=== PATIENT | female | born 2000 | race Caucasian/White ===

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

== ENCOUNTER 2020-01-13 10:43 | Observation (INO) ==
[2020-01-13] MEDS ORDERED: SODIUM CHLORIDE 1,000 ML IV STA ×2 (11:09→14:12)
[2020-01-13] MEDS ORDERED: PEPCID IVP ONE (11:09)
[2020-01-13] MEDS ORDERED: PHENERGAN 25 MG/ML VIAL 25 MG in SODIUM CHLORIDE 50 ML IV STA (11:11)
[2020-01-13] MEDS ORDERED: PHENERGAN 25 MG/ML VIAL ONE (11:17)
[2020-01-13 11:21] LABS: HEMATOCRIT 37.2 % (37.0-47.0)
[2020-01-13] MEDS ORDERED: PEPCID ONE (11:22)
--- NOTE | 2020-01-13 11:33 | ED.PDOC ---
General ED Provider: Dr. CARLOS ALBERTO KIDD Stated Complaint: Stated started her menses this morning and then developed intense cramping associates with Nausea and vomiting-multiple times and now dry heaves. States normallly smokes Cannabis daily Time Seen by Physician: 11:10 Mode of Arrival: Stretcher Information Source: Patient and EMT Exam Limitations: No limitations Primary Care Provider: HANS LARSON MD Seen Within Last 72 Hours for Same Complaint By: ED Nursing and Triage Documentation Reviewed and Agree: Yes Does patient meet sepsis criteria?: No System Inflammatory Response Syndrome: Not Applicable Sepsis Protocol: For patient's 13 years and over: Temp is 96.8 and below OR 101 and greater Pulse >90 BPM Resp >20/minute Acutely Altered Mental Status Are patient's symptoms suggestive of a new infection, such as: -Pneumonia -Skin, Soft Tissue -Endocarditis -UTI -Bone, Joint Infection -Implantable Device -Acute Abdominal Infection -Wound Infection -Meningitis -Blood Stream Catheter Infection -Unknown GI Complaint Exam Abdominal Pain Complaint/Exam Onset: Sudden Duration: 4 hrs onset with menses Symptoms Are: Still present Timing: Constant Initial Severity: Moderate Current Severity: Moderate Location of Pain: Discrete and Epigastric Character: Reports Sharp, Aching and Cramping Aggravating: Reports Position Alleviating: Reports None Associated Signs and Symptoms: Reports Diaphoresis, Chest pain and Back pain Related History: Reports Similar episode Ectopic Risk Factors: Reports None Ovarian Torsion Risk Factors: Reports None Surgical Obstruction Risk Factors: Reports None Related Surgical History: Reports None Patient Rh Status: Positive Abdominal Findings: Present None and Other (mid epigastric) Review of Systems Review Of Systems Constitutional: Reports Weakness and Loss of appetite Ears, Nose, Mouth, Throat: Reports Throat pain; Denies Ear pain, Ear discharge and Nose discharge Respiratory: Reports No symptoms Cardiac: Reports No symptoms GI: Reports Abdominal pain, Nausea, Poor fluid intake and Vomiting : Reports No symptoms Musculoskeletal: Reports No symptoms Skin: Reports No symptoms Neurological: Reports No symptoms Endocrine: Reports No symptoms Hematologic/Lymphatic: Reports No symptoms All Other Systems: Reviewed and Negative [facility] Medical History Chronic headaches Social History Smoking and tobacco status: Current every day smoker Tobacco: How many years used: 3 Passive smoking exposure: No Quit status: quit date established Second hand smoke exposure: No Smoking risk assessment performed: No Alcohol intake: current Alcohol intake frequency: holidays/special occasions only Counseling given: No Counseling provided: none Substance use type: marijuana Counseling given: No Counseling provided: none Diandra/zoroastrianism: NONE Special diandra needs: No Agree to transfusion: Yes Adopted: No Caregiver/support person: No Foster care: No Household members: family Housing: house Marital status: S SINGLE Lives independently: No Daycare: no daycare Number of children: 0 Number of grandchildren: 0 Highest education level completed: high school graduate Financial difficulty paying for basics: somewhat hard service: No alf: No Current occupational status: employed Current occupational exposures/hazards: No Pets and animals: Yes (cat) Leisure activites: music History of recent travel: Yes ([place]) Sexually active: No Do you think of yourself as: straight/heterosexual Current gender identity: female Seatbelt use: always Helmet use: No Drives intoxicated or rides with intoxicated motor coach bus driver: No Water heater temperature set < 120 degrees: Yes Working smoke detector in home: Yes Fire extinguisher in home: Yes Carbon monoxide detector in home: Yes Firearms in home: No What type of physical activity do you participate in?: running Physical activity functional status: independent ambulation How many days of moderate to strenuous exercise, like a brisk walk, did you do in the last 7 days: 3 Female Reproductive History Menstrual Hx Hysterectomy: No Hx Tubal Ligation: No Physical Exam Physical Exam Appearance: Reports Ill-appearing and Thin Ill-appearing: Moderate Pain Distress: Moderate Eyes: Reports PHIL, EOMI and Conjunctiva clear ENT: Reports Ears normal, Nose normal and Erythema (oralpharynx/sore throat) Neck: Supple Respiratory: Reports Airway patent and Breath sounds clear Cardiovascular: Reports RRR, Pulses normal, No rub and Irregular rhythm GI/: Reports Soft and Tender (mid epigastric) Musculoskeletal: Reports Normal strength, ROM intact, No edema and No calf tenderness Skin: Reports Warm, Dry, Normal color and Other (No rash ) Neurological: Reports Sensation intact, Motor intact, Reflexes intact, Cranial nerves intact, Alert and Oriented Psychiatric: Reports Affect appropriate and Anxious Critical Care Note Critical Care Note Total Time (mins): 30 Course Course Hematology/Chemistry: 01/14/20 05:10 01/14/20 05:10 Orders, Labs, Meds: Lab Review 01/13/20 01/13/20 01/13/20 11:17 11:17 11:17 WBC 13.45 H RBC 4.28 Hgb 12.7 Hct 37.2 MCV 86.9 MCH 29.7 MCHC 34.1 RDW Coeff of Lexie 12.4 Plt Count 248 Immature Gran % (Auto) 0.3 Neut % (Auto) 88.8 H Lymph % (Auto) 7.6 L [place] % (Auto) 2.8 Eos % (Auto) 0.1 Baso % (Auto) 0.4 Neut # (Auto) 12.0 H Lymph # (Auto) 1.0 [place] # (Auto) 0.4 Eos # (Auto) 0.0 Baso # (Auto) 0.1 Immature Gran # (Auto) 0.0 Sodium 139.9 Potassium 3.57 Chloride 108.5 H Carbon Dioxide 21.3 L Anion Gap 13.67 BUN 9.8 Creatinine 0.50 L Estimated GFR (MDRD) 159.00 BUN/Creatinine Ratio 19.60 Glucose 99.2 Calcium 8.66 Magnesium 1.86 Total Bilirubin 0.49 L AST 30.1 H ALT 14.8 Alkaline Phosphatase 79.1 Total Protein 7.27 Albumin 4.34 Globulin 2.93 Albumin/Globulin Ratio 1.48 Lipase Serum , Qual Negative Urine Color Urine Clarity Urine pH Ur Specific [place] Urine Protein Urine Glucose (UA) Urine Ketones Urine Blood Urine Nitrite Urine Bilirubin Urine Urobilinogen Ur Leukocyte Esterase Urine Microscopic RBC Urine Microscopic WBC Ur Squamous Epith Cells Urine Opiates Screen Ur Oxycodone Screen Urine Methadone Screen Ur Propoxyphene Screen Ur Barbiturates Screen U Tricyclic Antidepress Ur Phencyclidine Scrn Ur Amphetamine Screen U Methamphetamines Scrn U Benzodiazepines Scrn Urine Cocaine Screen U Cannabinoids Screen 01/13/20 01/13/20 01/13/20 11:17 14:09 14:09 WBC RBC Hgb Hct MCV MCH MCHC RDW Coeff of Lexie Plt Count Immature Gran % (Auto) Neut % (Auto) Lymph % (Auto) [place] % (Auto) Eos % (Auto) Baso % (Auto) Neut # (Auto) Lymph # (Auto) [place] # (Auto) Eos # (Auto) Baso # (Auto) Immature Gran # (Auto) Sodium Potassium Chloride Carbon Dioxide Anion Gap BUN Creatinine Estimated GFR (MDRD) BUN/Creatinine Ratio Glucose Calcium Magnesium Total Bilirubin AST ALT Alkaline Phosphatase Total Protein Albumin Globulin Albumin/Globulin Ratio Lipase 57.9 Serum , Qual Urine Color Yellow Urine Clarity Cloudy Urine pH 7.5 Ur Specific [place] 1.020 Urine Protein Negative Urine Glucose (UA) Negative Urine Ketones 1+ H Urine Blood 3+ H Urine Nitrite Negative Urine Bilirubin Negative Urine Urobilinogen 0.2 Ur Leukocyte Esterase Trace H Urine Microscopic RBC 30-50 Urine Microscopic WBC 0-2 Ur Squamous Epith Cells 2-5 Urine Opiates Screen Negative Ur Oxycodone Screen Negative Urine Methadone Screen Negative Ur Propoxyphene Screen Negative Ur Barbiturates Screen Negative U Tricyclic Antidepress Negative Ur Phencyclidine Scrn Negative Ur Amphetamine Screen Negative U Methamphetamines Scrn Negative U Benzodiazepines Scrn Negative Urine Cocaine Screen Positive H U Cannabinoids Screen Positive H Orders Category Date Time Status CBC W/ AUTO DIFF Stat LAB 01/13/20 11:17 Completed CMP [COMPREHENSIVE METABOLIC PANEL] Stat LAB 01/13/20 11:17 Completed HCG QUALITATIVE [SERUM ] Stat LAB 01/13/20 11:17 Completed MAGNESIUM Stat LAB 01/13/20 11:17 Completed RAPID STREP SCREEN [MOLECULAR GROUP A STREP] Stat LAB 01/13/20 11:35 Completed UA [URINALYSIS C & S IF INDICATED] Stat LAB 01/13/20 14:09 Completed URINE DRUG SCREEN (RAPID FOR ED) [DRUG SCREEN, URINE, LAB 01/13/20 14:09 Completed RAPID] Stat Famotidine Inj [Pepcid] MEDS 01/13/20 11:22 Discontinued 20 mg .ROUTE .STK-MED ONE Famotidine Inj [Pepcid] MEDS 01/13/20 11:09 Discontinued 20 mg IVP ONCE ONE Hydroxyzine HCl [Vistaril Inj] MEDS 01/13/20 14:08 Discontinued 25 mg IM ONCE STA Ondansetron HCl/Pf [Zofran 4 mg/2 ml] MEDS 01/13/20 13:14 Discontinued 4 mg IVP ONCE STA Promethazine HCl [Phenergan 25 mg/ml Vial] MEDS 01/13/20 11:17 Discontinued 25 mg .ROUTE .STK-MED ONE Promethazine HCl [Phenergan 25 mg/ml Vial] 25 mg MEDS 01/13/20 11:11 Discontinued 0.9 % Sodium Chloride [Sodium Chloride] 50 ml IV ONCE Sodium Chloride 0.9% [Sodium Chloride] 1,000 ml MEDS 01/13/20 11:09 Discontinued IV BOLUS Sodium Chloride 0.9% [Sodium Chloride] 1,000 ml MEDS 01/13/20 14:12 Discontinued IV BOLUS Medications Discontinued Medications Generic Name Dose Route Start Last Admin Trade Name Freq PRN Reason Stop Dose Admin Azithromycin 500 mg 01/14/20 09:00 01/14/20 08:19 Zithromax PO 01/17/20 08:59 500 mg DAILY LEXIE Administration Famotidine 20 mg 01/13/20 11:09 01/13/20 11:27 Pepcid IVP 01/13/20 11:10 20 mg ONCE ONE Administration Hydroxyzine HCl 25 mg 01/13/20 14:08 01/13/20 14:17 Vistaril Inj IM 01/13/20 14:09 25 mg ONCE STA Administration Sodium Chloride 1,000 mls @ 1,000 mls/hr 01/13/20 11:09 01/13/20 11:14 Sodium Chloride IV 01/13/20 12:08 1,000 mls/hr BOLUS STA Administration Promethazine HCl 25 mg/ Sodium 51 mls @ 75 mls/hr 01/13/20 11:11 01/13/20 11:27 Chloride IV 01/13/20 11:51 75 mls/hr ONCE STA Administration Sodium Chloride 1,000 mls @ 500 mls/hr 01/13/20 14:12 01/13/20 14:18 Sodium Chloride IV 01/13/20 16:11 500 mls/hr BOLUS STA Administration Sodium Chloride 1,000 mls @ 90 mls/hr 01/13/20 17:00 01/14/20 05:14 Sodium Chloride IV 90 mls/hr .[id number] LEXIE Administration Ketorolac Tromethamine 30 mg 01/13/20 16:37 01/13/20 17:26 Toradol IVP 30 mg Q12H PRN Administration Abdominal Pain Ondansetron HCl 4 mg 01/13/20 13:14 01/13/20 13:27 Zofran 4 Mg/2 Ml IVP 01/13/20 13:15 4 mg ONCE STA Administration Ondansetron HCl 8 mg 01/13/20 17:00 06/10/20 12:52 Zofran 4 Mg/2 Ml IVP Not Given Q6H LEXIE Promethazine HCl 25 mg 01/13/20 16:31 01/14/20 09:28 Phenergan 25 Mg/Ml Vial IM 25 mg Q6H PRN Administration nausea/vomiting Sucralfate 1 gm 01/13/20 17:00 01/14/20 12:14 Carafate PO 1 gm ACHS LEXIE Administration Sumatriptan Succinate 6 mg 01/13/20 16:31 01/13/20 17:11 Imitrex SUBCUT 01/13/20 16:32 6 mg ONCE STA Administration Vital Signs: Temp Pulse Resp BP Pulse Ox 01/13/20 10:44 97.2 F L 58 L 20 110/61 100 Discharge Plan Discharge Patient Disposition: HOME SELF-CARE Discharge Problem: Acute gastritis, Strep pharyngitis, Cannabinoid hyperemesis syndrome ED Provider: CARLOS ALBERTO KIDD Condition: Stable Discharge Date/Time: 01/13/20 16:31
[2020-01-13] MEDS ORDERED: ZOFRAN 4 MG/2 ML IVP STA (13:14)
[2020-01-13] MEDS ORDERED: VISTARIL INJ IM STA (14:08)
--- NOTE | 2020-01-13 16:13 | PCM ---
Chief Complaint Chief Complaint: Intractable nausea and vomiting. History of Present Illness History of Present Illness: 19 yr old CF presented to ED 01/13/20 at 11:10 via stretcher. EMS was contacted. complaint started menses this am, developed cramping/nausea and vomiting. Has had multiple rounds of emesis today, non bloody, now dry heaving, unable to tolerate po liquids/solids. She reports Cannabis use daily. Sudden onset ~4 hours, symptoms still present in the ED. moderate severity, discrete pain epigastric region still prsent in ED. Rates pain at 5/10, colicky worsening with baseline pain. Sharp, aching/cramping. Positional aggravation, diaphoresis, upper epigastric and back pain. ROS reviewed abd pain, nausea, poor fluid intake and vomiting. Every day smoker 3 years tobacco. Holidays/special events for ETOH, no increased use lately. no i ncreased use of ibuprofen/aleve or other NSAIDS. Daily THC. Also using cocaine intermittently last use within last few days. WBC 13.45, hgb 12.7, plt 248. Sodium 139.9, K+ 3.57, BUN 9.8, Creatinine 0.50, glucose 99.2. Negative serum . AST minimally elevated 30.1. Urine yellow/cloudy, ph 7.5, sg 1.020. Ketones 1+, 3+ urine blood likely menstrual. LE trace. Urine drug screen positive for cocaine, cannabinoids. She was given pepcid in ED, hydoxyzine in ED, zofran, phenergan, She received 2 L of NS in ED. Weight 101 lb. Vitals in Ed reviewed 97.2, Pulse 58, RR 20, BP 110/61, pulse ox 100. She has history of migraines. Last typical migraine was 1 week ago with use of imitrex. Not sexually active. She notes no changes in vaginal discharge. She noted yesterday she was fine. She noted symptoms started this am with her menstrual cycle. Notes worse FELICIANO during menstrual cycle. She notes mother has same symptoms. No provider so far for these problems. She has migraines monthly to q 2 months. She has not had any toradol while in ED. She has had emesis regularly since 0730. She has never had anything like this before. Has never felt this way before. She has smoked marijuana daily. We discussed the marijuana, discussed hyeremesis. I discussed imitrex injectable, discussed injectable toradol as well. We will provide some carafate while here. +photophobia chronic menstrual migraine, now not tolerating po intake. I asked her about the drug use and she noted she only did 3 lines of cocaine. Reported headache, no fever, no vision changes but + photophobia, no loss of taste/smell, No URI symptoms, no new URI symptoms, no cough/congestion/wheezing/SOA, No CP, no reported fatigue, + abd pain RUQ and Epigastric, + N/V without Diarrhea, non bloody emesis, no constipation, no changes in urination/stooling, no new MSK pain, no recent injuries. she notes decreased po intake. Inability to tolerate liquids/solids. Physical Examination: Constitutional: Appearance-No acute distress, resting covering eyes/photophobia. Consistent with stated age. Orientation- Oriented x 3, alert Gait- In bed. Build and Nutrition-[normal] General- Patient is pleasant and cooperative with the interview and exam. Integumentary: General-No rashes, ulcers or lesions. Palpation- Normal skin moisture/turgor. Skin is warm to touch, appropriate. Capillary refill is normal bilateral Upper and lower extremity. Head/Neck: Head- normocephalic and atraumatic. Neck- without visible/palpable lumps or pulsations. Palpation- No bony tenderness about head/neck along frontal, occipital, temporal, parietal, mastoid, jawline, zygoma, orbit or any other location. NO temporal artery tenderness. No TMJ tenderness. Neck Supple. Thyroid-No thyromegaly, no nodules Eye: Bilaterally PERRLA, EOMI. No discharge. Upper and lower eyelids are normal. Sclera/conjunctiva normal without discharge. Cornea is normal and clear. Lens is normal. Eyeball appears normal. No ciliary flushing, no conjunctival injection. +Photophobia. Normal EOMI. Normal accommodation. ENMT: Pinna- normal without tenderness or erythema. External auditory canal Left- normal without erythema or discharge, no excessive cerumen. External auditory canal Right-normal without erythema or discharge, no excessive cerumen. TM left- Collazo/pearly, normal light reflex and anatomy TM Right- Collazo/pearly, normal light reflex and anatomy Hearing Assessment-normal to conversational speech. Nose and sinus- No sinus tenderness along frontal/maxillary region. External appearance normal and midline. Nares- bilateral quiet airflow, no discharge. Nasal mucosa- No bleeding noted and no ulcerations observed. Leal, moist. Turbinates non boggy. Lips- normal color, moist without cracks/lesions Oral Cavity/Palate- hard/soft palate intact without lesions, oral mucosa pink a nd moist. Tongue normal midline. Oropharynx- no pharyngeal erythema, Uvula midline. No post nasal drip. No exudate. Salivary glands- Non tender to palpation CHEST/LUNG: Inspection- symmetric chest wall no pectus deformity. Normal effort, no distress, no use of accessory muscles. Palpation- nontender sternum, ribline. No abnormal pulsations. Auscultation- Breath sounds normal throughout all lung marsh. Normal tracheal sounds, Normal bronchial sounds overlying sternum, Bronchovessicular sounds normal between scapulae posteriorly, Normal vessicular breath sounds heard throughout periphery. Lungs are clear today. Adventitious sounds- No wheezes, rales, rhonchi. CARDIOVASCULAR: Carotid artery- normal, no bruits or abnormal pulsations. Ju gular vein- no pulsations. Palpation/Percussion- Normal PMI, no palpable thrill Auscultation- Regular rate and rhythm. No murmur noted in sitting, supine positions. Extremities- no digital clubbing, cyanosis, edema, increased warmth. ABDOMEN: Inspection- normal and no visible pulsations. Normal contour. Auscultation- Bowel sounds normal, no abdominal bruits. Palpation/Percussion- soft, tender RUQ and Epigastric Region. Lovelace +. Mcburney negative, rovsing negative, obturator negative. no rebound tenderness, no rigidity (guarding), no jar tenderness, no masses. Liver-no hepatomegaly, Spleen no splenomegaly, Hernias- none. Rectal not examined. Peripheral Vascular: Upper extremity Left- Normal temperature with pink nailbeds and no ulcerations. Upper extremity Right- Normal temperature with pink nailbeds and no ulcerations. Lower extremity- Normal temperature with pink nailbeds and no ulcerations. DP pulses 2+ bilaterally. Pedal hair intact. Normal capillary refill. Edema- No edema. Cap refills normal. Musculoskeletal: Generalized-No generalized swelling or edema of extremities, no digital clubbing or cyanosis, neurovascularly intact all four extremities. Upper extremity- Symmetrical posture. No visible deformity. Normal sensation along medial and lateral upper extremity proximally and distally. NO tenderness overlying shoulder, lateral/medial epicondyle. Barrel Plater 5/5 and strength 5/5 bilateral UE. Elbow palpated, no tenderness overlying olecranon. Normal supination, pronation to active/passive ROM and to resisted rotation. Bicep insertion/tricep insertion appear normal without obvious pathology. Rotator cuff evaluated and intact. Normal wrist ROM bilaterally. Normal hand movement, intrinsic muscles of hands normal. No tenderness to palpation of hands/wrists/elbows. Lower extremity- Hip: Not tender to palpation, no pain, no swelling, edema or erythema of surrounding tissue, normal strength and tone. Normal appearing hip ROM bilaterally without pain. Knee: Knee ROM normal. No tenderness overlying trochanters, no tenderness about patella, quad tendon, patellar tendon. No tenderness at tibial tuberosity. Ankle: normal ROM not tender to palpation along medial/lateral malleolus. Foot: Normal movement of toes, no tenderness kristi ateral feet/toes. Normal foot type. Spine/Ribs- No deformities, masses or tenderness, no known fractures, normal strength, Normal ROM. Normal stability No tenderness along C/T/L spine. Normal appearing ROM about spine. Neurological: General- Moves all 4 extremities symmetrically. Symmetrical face and body posture. Cranial nerves- individually evaluated II-XII and intact. PERRLA, Normal EOMI, visual/special senses appear intact, Face is symmetrical and normal sensation/movement, normal tongue, normal strength/posture of neck musculature. Reflexes- intact with DTR 2+ patellar, Achilles, bicep, brachial, tricep. Ankle clonus normal with 2 beats. Strength- 5/5 bilateral UE and LE. Soft touch- intact bilateral UE and LE. Temperature sensation- intact bilateral UE and LE. Neuropsych: Oriented- Person, place, time. (AAOx3), Mood/affect- normal and congruent. Able to articulate well. Speech-Normal speech, normal rate, normal tone, normal use of language, volume and coherence. Thought content- normal with ability to perform basic computations and apply abstract thought/reason. Associations- intact, no SI/HI, no hallucinations, delusions, obsessions. Judgment/insight- Appropriate. Memory-Recall intact, remote and recent memory intact. Knowledge- Age appropriate fund of knowledge, concentration and atte ntion span normal. Lymphatic: Head/Neck- normal size and non tender to palpation. Axillary- normal size and non tender to palpation. Femoral and Inguinal- normal size and non tender to palpation. Review of Systems Constitutional: Reports sweats and loss of appetite; Denies fever, chills, weakness and fatigue Eyes: Reports photophobia; Denies blurred vision, double-vision, discharge, itching, pain and redness Ears: Denies pain, bleeding, drainage, ringing and hearing loss Nose: Denies bleeding, congestion and discharge Throat: Denies pain, swelling and voice change Mouth: Denies bleeding, pain and swelling Respiratory: Denies cough, shortness of air, wheeze, hemoptysis and pain with breathing Cardiovascular: Denies chest pain, left arm pain, diaphoresis, PND, orthopnea, edema, palpitations and syncope Gastrointestinal: Reports abdominal pain, nausea and vomiting; Denies diarrhea, melena, hematemesis, hematochezia, dysphagia and constipation Genitourinary: Denies dysuria, hematuria, frequency, incontinence, flank pain, vaginal discharge, abnormal bleeding, pelvic pain and other Neurological: Reports headache; Denies dizziness, seizure, numbness, weakness, speech difficulty, problems with walking, tremor and fainting Musculoskeletal: Denies pain and swelling in joints Skin: Denies rash, pruritus, lacerations, wounds and bruising Immunology: Denies hives, itching, frequent infections and difficulty healing Hematology: Denies easy bruising, easy bleeding and swollen glands Endocrine: Denies weight changes, cold intolerance, heat intolerance, excessive thirst, excessive hunger, polyuria and other Psychiatric: Reports depression, anxiety and other (drug use marijuana daily and cocaine recently. ); Denies sleeplessness, hopelessness, suicidal and hallucinations Habits: Reports tobacco use and substance use; Denies alcohol use (rarely) and other Allergies Allergies Allergy/AdvReac Type Severity Reaction Status Date / Time amoxicillin Allergy Severe Nausea Verified 01/13/20 10:49 [facility] Medical History Chronic headaches Social History Smoking and tobacco status: Current every day smoker Tobacco: How many years used: 3 Passive smoking exposure: No Quit status: quit date established Second hand smoke exposure: No Smoking risk assessment performed: No Alcohol intake: current Alcohol intake frequency: holidays/special occasions only Counseling given: No Counseling provided: none Substance use type: marijuana Counseling given: No Counseling provided: none Diandra/scientology: NONE Special diandra needs: No Agree to transfusion: Yes Adopted: No Caregiver/support person: No Foster care: No Household members: family Housing: house Marital status: S SINGLE Lives independently: No Daycare: no daycare Number of children: 0 Number of grandchildren: 0 Highest education level completed: high school graduate Financial difficulty paying for basics: somewhat hard service: No assisted: No Current occupational status: employed Current occupational exposures/hazards: No Pets and animals: Yes (cat) Leisure activites: music History of recent travel: Yes ([place]) Sexually active: No Do you think of yourself as: straight/heterosexual Current gender identity: female Seatbelt use: always Helmet use: No Drives intoxicated or rides with intoxicated tow motor driver: No Water heater temperature set < 120 degrees: Yes Working smoke detector in home: Yes Fire extinguisher in home: Yes Carbon monoxide detector in home: Yes Firearms in home: No What type of physical activity do you participate in?: running Physical activity functional status: independent ambulation How many days of moderate to strenuous exercise, like a brisk walk, did you do in the last 7 days: 3 Medications Medications: Medications Generic Name Dose Route Start Last Admin Trade Name Freq PRN Reason Stop Dose Admin Sodium Chloride 1,000 mls @ 500 mls/hr 01/13/20 14:12 01/13/20 14:18 Sodium Chloride IV 01/13/20 16:11 500 mls/hr BOLUS STA Administration Body Composition Height: 5 ft 2 in Weight: 101 lb 10.13 oz Body Mass Index (BMI): 18.6 Vital Signs Temperature: 97.2 F Pulse Rate: 58 Respiratory Rate: 20 Blood Pressure: 110/61 O2 Sat by Pulse Oximetry: 100 Physical Examination Appearance: Reports Ill-appearing Ill-appearing: Moderate Pain Distress: Moderate Eyes: Reports PHIL and EOMI Neck: Supple Respiratory: Reports Airway patent Cardiovascular: Reports RRR and Pulses normal GI/: Reports Tender Musculoskeletal: Reports Normal strength and ROM intact Skin: Reports Warm Neurological: Reports Sensation intact Psychiatric: Reports Affect appropriate Lab/Tests/Diagnostic Imaging Lab/Tests/Diagnostic Imaging: Lab Review 01/13/20 01/13/20 01/13/20 11:17 11:17 11:17 WBC 13.45 H RBC 4.28 Hgb 12.7 Hct 37.2 MCV 86.9 MCH 29.7 MCHC 34.1 RDW Coeff of Lexie 12.4 Plt Count 248 Immature Gran % (Auto) 0.3 Neut % (Auto) 88.8 H Lymph % (Auto) 7.6 L [place] % (Auto) 2.8 Eos % (Auto) 0.1 Baso % (Auto) 0.4 Neut # (Auto) 12.0 H Lymph # (Auto) 1.0 [place] # (Auto) 0.4 Eos # (Auto) 0.0 Baso # (Auto) 0.1 Immature Gran # (Auto) 0.0 Sodium 139.9 Potassium 3.57 Chloride 108.5 H Carbon Dioxide 21.3 L Anion Gap 13.67 BUN 9.8 Creatinine 0.50 L Estimated GFR (MDRD) 159.00 BUN/Creatinine Ratio 19.60 Glucose 99.2 Calcium 8.66 Magnesium 1.86 Total Bilirubin 0.49 L AST 30.1 H ALT 14.8 Alkaline Phosphatase 79.1 Total Protein 7.27 Albumin 4.34 Globulin 2.93 Albumin/Globulin Ratio 1.48 Serum , Qual Negative Urine Color Urine Clarity Urine pH Ur Specific [place] Urine Protein Urine Glucose (UA) Urine Ketones Urine Blood Urine Nitrite Urine Bilirubin Urine Urobilinogen Ur Leukocyte Esterase Urine Microscopic RBC Urine Microscopic WBC Ur Squamous Epith Cells Urine Opiates Screen Ur Oxycodone Screen Urine Methadone Screen Ur Propoxyphene Screen Ur Barbiturates Screen U Tricyclic Antidepress Ur Phencyclidine Scrn Ur Amphetamine Screen U Methamphetamines Scrn U Benzodiazepines Scrn Urine Cocaine Screen U Cannabinoids Screen 01/13/20 01/13/20 14:09 14:09 WBC RBC Hgb Hct MCV MCH MCHC RDW Coeff of Lexie Plt Count Immature Gran % (Auto) Neut % (Auto) Lymph % (Auto) [place] % (Auto) Eos % (Auto) Baso % (Auto) Neut # (Auto) Lymph # (Auto) [place] # (Auto) Eos # (Auto) Baso # (Auto) Immature Gran # (Auto) Sodium Potassium Chloride Carbon Dioxide Anion Gap BUN Creatinine Estimated GFR (MDRD) BUN/Creatinine Ratio Glucose Calcium Magnesium Total Bilirubin AST ALT Alkaline Phosphatase Total Protein Albumin Globulin Albumin/Globulin Ratio Serum , Qual Urine Color Yellow Urine Clarity Cloudy Urine pH 7.5 Ur Specific [place] 1.020 Urine Protein Negative Urine Glucose (UA) Negative Urine Ketones 1+ H Urine Blood 3+ H Urine Nitrite Negative Urine Bilirubin Negative Urine Urobilinogen 0.2 Ur Leukocyte Esterase Trace H Urine Microscopic RBC 30-50 Urine Microscopic WBC 0-2 Ur Squamous Epith Cells 2-5 Urine Opiates Screen Negative Ur Oxycodone Screen Negative Urine Methadone Screen Negative Ur Propoxyphene Screen Negative Ur Barbiturates Screen Negative U Tricyclic Antidepress Negative Ur Phencyclidine Scrn Negative Ur Amphetamine Screen Negative U Methamphetamines Scrn Negative U Benzodiazepines Scrn Negative Urine Cocaine Screen Positive H U Cannabinoids Screen Positive H Orders Category Date Time Status CBC W/ AUTO DIFF Stat LAB 01/13/20 11:17 Completed CMP [COMPREHENSIVE METABOLIC PANEL] Stat LAB 01/13/20 11:17 Completed HCG QUALITATIVE [SERUM ] Stat LAB 01/13/20 11:17 Completed MAGNESIUM Stat LAB 01/13/20 11:17 Completed RAPID STREP SCREEN [MOLECULAR GROUP A STREP] Stat LAB 01/13/20 11:35 Completed UA [URINALYSIS C & S IF INDICATED] Stat LAB 01/13/20 14:09 Completed URINE DRUG SCREEN (RAPID FOR ED) [DRUG SCREEN, URINE, LAB 01/13/20 14:09 Completed RAPID] Stat Famotidine Inj [Pepcid] MEDS 01/13/20 11:22 Discontinued 20 mg .ROUTE .STK-MED ONE Famotidine Inj [Pepcid] MEDS 01/13/20 11:09 Discontinued 20 mg IVP ONCE ONE Hydroxyzine HCl [Vistaril Inj] MEDS 01/13/20 14:08 Discontinued 25 mg IM ONCE STA Ondansetron HCl/Pf [Zofran 4 mg/2 ml] MEDS 01/13/20 13:14 Discontinued 4 mg IVP ONCE STA Promethazine HCl [Phenergan 25 mg/ml Vial] MEDS 01/13/20 11:17 Discontinued 25 mg .ROUTE .STK-MED ONE Promethazine HCl [Phenergan 25 mg/ml Vial] 25 mg MEDS 01/13/20 11:11 Discont inued 0.9 % Sodium Chloride [Sodium Chloride] 50 ml IV ONCE Sodium Chloride 0.9% [Sodium Chloride] 1,000 ml MEDS 01/13/20 11:09 Discontinued IV BOLUS Sodium Chloride 0.9% [Sodium Chloride] 1,000 ml MEDS 01/13/20 14:12 Active IV BOLUS Medications Generic Name Dose Route Start Last Admin Trade Name Navdeep PRN Reason Stop Dose Admin Sodium Chloride 1,000 mls @ 500 mls/hr 01/13/20 14:12 01/13/20 14:18 Sodium Chloride IV 01/13/20 16:11 500 mls/hr BOLUS STA Administration Discontinued Medications Generic Name Dose Route Start Last Admin Trade Name Navdeep PRN Reason Stop Dose Admin Famotidine 20 mg 01/13/20 11:09 01/13/20 11:27 Pepcid IVP 01/13/20 11:10 20 mg ONCE ONE Administration Hydroxyzine HCl 25 mg 01/13/20 14:08 01/13/20 14:17 Vistaril Inj IM 01/13/20 14:09 25 mg ONCE STA Administration Sodium Chloride 1,000 mls @ 1,000 mls/hr 01/13/20 11:09 01/13/20 11:14 Sodium Chloride IV 01/13/20 12:08 1,000 mls/hr BOLUS STA Administration Promethazine HCl 25 mg/ Sodium 51 mls @ 75 mls/hr 01/13/20 11:11 01/13/20 11:27 Chloride IV 01/13/20 11:51 75 mls/hr ONCE STA Administration Ondansetron HCl 4 mg 01/13/20 13:14 01/13/20 13:27 Zofran 4 Mg/2 Ml IVP 01/13/20 13:15 4 mg ONCE STA Administration Assessment (1) Menstrual migraine: Status: Acute Code(s): G43.829 - Menstrual migraine, not intractable, without status migrainosus SNOMED Code(s): 04181859 Qualifiers: Intractability: not intractable Status migrainosus presence: without status migrainosus Qualified Code(s): G43.829 - Menstrual migraine, not intractable, without status migrainosus (2) Menstrual cramp: Status: Acute Code(s): N94.6 - Dysmenorrhea, unspecified SNOMED Code(s): 667621559 (3) RUQ abdominal pain: Status: Acute Code(s): R10.11 - Right upper quadrant pain SNOMED Code(s): 183113375 (4) Tobacco use: Status: Acute Code(s): Z72.0 - Tobacco use SNOMED Code(s): 453456257 (5) Cocaine use: Status: Acute Code(s): F14.90 - Cocaine use, unspecified, uncomplicated SNOMED Code(s): 991981142 (6) Marijuana use: Status: Acute Code(s): F12.90 - Cannabis use, unspecified, uncomplicated SNOMED Code(s): 086783612 Plan Plan: Nausea/Emesis/Abdominal pain: Ddx considered include: Gastritis, PUD, Gastroenteritis (viral and non viral), IBS, food borne pathology, Biliary disease, Colitis, pancreatitis. We talked about travel, about personal/social history and symptoms. No red flags. Cannot tolerate liquids. We discussed her symptoms and discussed short term admission for observation. We discussed dehydration. She has had at least 2 L in ED. Will give her fluids overnight at 90ml/hour which is just a little above maintenance fluids. Mucus membranes are moist. She has epigastric and RUQ pain. We will provide carafate, will provide toradol for pain. R/B/A to the toradol reviewed with her. She will be made NPO after dinner to get a RUQ US in the am. I suspect possible menstrual migraine/abdominal migraine with possibility of cannabis hyperemesis syndrome as well. Avoid hyper sugary drinks while in hospital. Apple juice to water 50:50 is a reasonable rehydration solution. No bloody emesis/diarrhea by history. Mild cramping in upper abdomen/RUQ is different than her menstrual symptoms. Vaginal discharge chronically, no different and typical for her menstrual cycle. She is not sexually active, negative. BM regular, not constipated. UA reviewed. No e/o infection. - Admit observation. - Fluids: 90ml/hour normal saline - Labs: - Now: Add Lipase - Am: CBC/CMP - Imaging: - AM: US RUQ - Up early mobilization - clear liquid diet PRN - PAIN: - Toradol 30mg IV q 12 hours. - Sumatriptan 6mg IV once - Carafate 1gram PO QACHS - ANtIEMETICS: - Zofran 8 q 6 hours IV - phenergan 25 q 6 hours IV Menstrual migraine/menstrual cramping: Onset of menstrual cycle this am with onset of symptoms. Migraine dx needs at least 5 attacks fulfilling the following criteria: FELICIANO lasting 4-72 hours, FELICIANO has at least 2 of the following characteristics, Unilateral, pulsatile, moderate/severe pain, aggravated by or causing avoidance of routing activity), also to have N/V or both, Photo/phonophobia. Not accounted for by other Dx. No aura prior to FELICIANO. Ddx for this FELICIANO could be Tension type FELICIANO, dehydration, drug effect, analgesic FELICIANO, less likely cluster as she does not have any single sided lacrimation/salivation/skin changes FELICIANO do not awaken the patient from sleep. These are not getting worse with time. No lacrimation, salivation, rhinorrhea, no facial flushing. No pin point/needle pin like symptoms on face/scalp. Reviewed secondary causes of FELICIANO, no reported trauma. R/B/A to triptans, contraindications reviewed, d/w patient SE of this Rx. Discussed antiemetics as first line. Reviewed Tylenol, reviewed NSAIDS, reviewed Benadryl as potential benefits in some patients. Reviewed antiemetics Phenergan can be of benefit but may cause some sedation. Zofran ODT can help with nausea, and we may use this at d/c. Tobacco: Tobacco Cessation discussed today for 2 minutes. We reviewed lifestyle choices and discussed quitting. Ready to quit status discussed. The risks and hazards of continued tobacco abuse were discussed with the patient today and total tobacco cessation as recommended. It was clearly and unambiguously explained that continued tobacco usage will adversely affect overall morbidity and mortality of the patient. Patient was informed that tobacco use can lead to numerous cancers, worsening of cardiovascular and pulmonary systems and that lung damage is often permanent and irreversible. I advised the patient to inform me if any further assistance is requested, as we can offer counseling services, nicotine replacement inhaled, patch, lozenge, gum, or prescription medications to include Chantix or Wellbutrin for assistance. I will reassess the interest in tobacco cessation at the next and all subsequent visits. Strep Positive: Suspect carrier state. No sore throat. azithromycin 500 01/14/20. Then daily 250mg. Drug Use: Cocaine and THC. Not interested in quitting. R/B/A to this and for cyclic vomiting syndrome d/w patient. DVT Prophy: Early mobilization. Disposition: Spent 50 mintues on admission to observation today. Expected length of stay 24-48 hours. Clear liquid diet up to dinner. NPO after dinner other than ice chips for RUQ US in the am. Reassess patient in am.
[2020-01-13] MEDS ORDERED: IMITREX SUBCUT STA (16:31)
[2020-01-13] MEDS ORDERED: PHENERGAN 25 MG/ML VIAL IM PRN (16:31)
[2020-01-13] MEDS ORDERED: TORADOL IVP PRN (16:37)
[2020-01-13] MEDS ORDERED: MOTRIN PO PRN (16:42)
[2020-01-13 16:47] VITALS: BMI 18.7
[2020-01-13] MEDS: CARAFATE PO SCH ×2 (17:11→20:43)
[2020-01-13] MEDS: SODIUM CHLORIDE 1,000 ML IV SCH (17:12)
[2020-01-13] MEDS: ZOFRAN 4 MG/2 ML IVP SCH ×2 (17:24→23:36)
[2020-01-14] MEDS: SODIUM CHLORIDE 1,000 ML IV SCH (05:14)
[2020-01-14 05:25] LABS: HEMATOCRIT 35.9 % (37.0-47.0)
[2020-01-14] MEDS: ZOFRAN 4 MG/2 ML IVP SCH ×2 (05:57→12:52)
[2020-01-14] MEDS: CARAFATE PO SCH ×2 (05:58→12:14)
--- NOTE | 2020-01-14 08:37 | US ---
EXAM: Limited abdominal sonogram. HISTORY: Abdominal pain. TECHNIQUE: Real time with duplex. COMPARISON: Right upper quadrant pain, epigastric pain FINDINGS: The liver measures up to 9.4 cm in length. The liver demonstrates normal echogencity. There is no i ntrahepatic biliary dilation. The portal vein is patent and antegrade. The visualized pancreas is unremarkable. Gallbladder is not well distended with wall thickness measuring approximately 0.15 cm. No evidense o f cholelithiasis, pericholecystic fluid or wall thickening. The common bile duct measures 0.42 cm. The right kidney measures 9.9 x 3.5 cm. There is no hydronephrosis or renal calculus. IMPRESSION: Normal right upper quadrant sonogram.
[2020-01-14] MEDS ORDERED: ZITHROMAX PO SCH (09:00)
--- NOTE | 2020-01-14 13:10 | PCM.DC ---
Final Diagnosis: Gastritis/Gastroenteritis/PUD Menstrual migraine/menstrual cramping. Cannabis use Cocaine use Tobacco use Strep Positive (1) Menstrual migraine: Status: Acute Code(s): G43.829 - Menstrual migraine, not intractable, without status migrainosus SNOMED Code(s): 62604154 Qualifiers: Intractability: not intractable Status migrainosus presence: without status migrainosus Qualified Code(s): G43.829 - Menstrual migraine, not intractable, without status migrainosus (2) Menstrual cramp: Status: Acute Code(s): N94.6 - Dysmenorrhea, unspecified SNOMED Code(s): 227223119 (3) RUQ abdominal pain: Status: Acute Code(s): R10.11 - Right upper quadrant pain SNOMED Code(s): 626438920 (4) Tobacco use: Status: Acute Code(s): Z72.0 - Tobacco use SNOMED Code(s): 127792078 (5) Cocaine use: Status: Acute Code(s): F14.90 - Cocaine use, unspecified, uncomplicated SNOMED Code(s): 764897437 (6) Marijuana use: Status: Acute Code(s): F12.90 - Cannabis use, unspecified, uncomplicated SNOMED Code(s): 100012052 Reason for Hospitalization: Intractable nausea/vomiting/headache. She just started menstrual cycle. Abdominal pain. Known history of migraines. Unable to tolerate PO liquids. Prognosis at Discharge: Prognosis is Good. She is Improved. Tolerating PO liquids. Vitals stable. Condition at Discharge: Condition is improved. Tolerating PO liquids. Less abdominal pain. Vitals stable. Medications at Discharge: Ambulatory Orders Medication Instructions Recorded Excedrin Extra Strength 1 ea PO PRN PRN 08/29/17 ibuprofen 200 mg PO PRN PRN 08/29/17 azithromycin 250 mg PO DAILY 4 Days #4 tab 01/14/20 ondansetron 4 mg PO Q8H #30 tab 01/14/20 promethazine 25 mg RC .q 8h PRN #12 each 01/14/20 sucralfate 1 g PO ACHS 7 Days #280 ml 01/14/20 Lab/Diagnostics: Laboratory Results - last 24 hr 01/13/20 01/13/20 01/13/20 11:17 14:09 14:09 WBC RBC Hgb Hct MCV MCH MCHC RDW Coeff of Lexie Plt Count Immature Gran % (Auto) Neut % (Auto) Lymph % (Auto) [place] % (Auto) Eos % (Auto) Baso % (Auto) Neut # (Auto) Lymph # (Auto) [place] # (Auto) Eos # (Auto) Baso # (Auto) Immature Gran # (Auto) Sodium Potassium Chloride Carbon Dioxide Anion Gap BUN Creatinine Estimated GFR (MDRD) BUN/Creatinine Ratio Glucose Calcium Total Bilirubin AST ALT Alkaline Phosphatase Total Protein Albumin Globulin Albumin/Globulin Ratio Lipase 57.9 Urine Color Yellow Urine Clarity Cloudy Urine pH 7.5 Ur Specific [place] 1.020 Urine Protein Negative Urine Glucose (UA) Negative Urine Ketones 1+ H Urine Blood 3+ H Urine Nitrite Negative Urine Bilirubin Negative Urine Urobilinogen 0.2 Ur Leukocyte Esterase Trace H Urine Microscopic RBC 30-50 Urine Microscopic WBC 0-2 Ur Squamous Epith Cells 2-5 Urine Opiates Screen Negative Ur Oxycodone Screen Negative Urine Methadone Screen Negative Ur Propoxyphene Screen Negative Ur Barbiturates Screen Negative U Tricyclic Antidepress Negative Ur Phencyclidine Scrn Negative Ur Amphetamine Screen Negative U Methamphetamines Scrn Negative U Benzodiazepines Scrn Negative Urine Cocaine Screen Positive H U Cannabinoids Screen Positive H 01/14/20 01/14/20 05:10 05:10 WBC 13.74 H RBC 4.23 Hgb 12.4 Hct 35.9 L MCV 84.9 MCH 29.3 MCHC 34.5 RDW Coeff of Lexie 12.2 Plt Count 287 Immature Gran % (Auto) 0.4 Neut % (Auto) 79.9 H Lymph % (Auto) 14.1 [place] % (Auto) 5.4 Eos % (Auto) 0.0 Baso % (Auto) 0.2 Neut # (Auto) 11.0 H Lymph # (Auto) 1.9 [place] # (Auto) 0.7 Eos # (Auto) 0.0 Baso # (Auto) 0.0 Immature Gran # (Auto) 0.1 Sodium 135.8 Potassium 3.45 L Chloride 105.4 Carbon Dioxide 21.2 L Anion Gap 12.65 BUN 6.4 L Creatinine 0.45 L Estimated GFR (MDRD) 179.00 BUN/Creatinine Ratio 14.22 Glucose 94.8 Calcium 8.81 Total Bilirubin 0.92 AST 40.6 H ALT 15.0 Alkaline Phosphatase 76.1 Total Protein 6.92 Albumin 4.13 Globulin 2.79 Albumin/Globulin Ratio 1.48 Lipase Urine Color Urine Clarity Urine pH Ur Specific [place] Urine Protein Urine Glucose (UA) Urine Ketones Urine Blood Urine Nitrite Urine Bilirubin Urine Urobilinogen Ur Leukocyte Esterase Urine Microscopic RBC Urine Microscopic WBC Ur Squamous Epith Cells Urine Opiates Screen Ur Oxycodone Screen Urine Methadone Screen Ur Propoxyphene Screen Ur Barbiturates Screen U Tricyclic Antidepress Ur Phencyclidine Scrn Ur Amphetamine Screen U Methamphetamines Scrn U Benzodiazepines Scrn Urine Cocaine Screen U Cannabinoids Screen US Gallbladder: Negative. Education Provided to Patient and Family: Gastroenteritis/Gastritis/PUD/Biliary disease. Avoid dairy Diet to start with clear liquid and advance as tolerated. Safe sex encouraged. Drug/substance Use: 1. Cannabis use/recommended cessation. 2. Tobacco use/ recommended cessation. 3. Cocaine use/recommended cessation. Follow-ups: Dr. Garcia 1300 Sunday01/16/20. Discharge Disposition: Home Hospital Course: 19 yr old CF presented to ED 01/13/20 at 11:10 via stretcher. EMS was contacted. complaint started menses this am, developed cramping/nausea and vomiting. Has had multiple rounds of emesis today, non bloody, now dry heaving, unable to tolerate po liquids/solids. She reports Cannabis use daily. Sudden onset ~4 hours, symptoms still present in the ED. moderate severity, discrete pain epigastric region still prsent in ED. Rates pain at 5/10, colicky worsening with baseline pain. Sharp, aching/cramping. Positional aggravation, diaphoresis, upper epigastric and back pain. ROS reviewed abd pain, nausea, poor fluid intake and vomiting. Every day smoker 3 years tobacco. Holidays/special events for ETOH, no increased use lately. no increased use of ibuprofen/aleve or other NSAIDS. Daily THC. Also using cocaine intermittently last use within last few days. WBC 13.45, hgb 12.7, plt 248. Sodium 139.9, K+ 3.57, BUN 9.8, Creatinine 0.50, glucose 99.2. Negative serum . AST minimally elevated 30.1. Urine yellow/cloudy, ph 7.5, sg 1.020. Ketones 1+, 3+ urine blood likely menstrual. LE trace. Urine drug screen positive for cocaine, cannabinoids. She was given pepcid in ED, hydoxyzine in ED, zofran, phenergan, She received 2 L of NS in ED. Weight 101 lb. Vitals in Ed reviewed 97.2, Pulse 58, RR 20, BP 110/61, pulse ox 100. She has history of migraines. Last typical migraine was 1 week ago with use of imitrex. Not sexually active. She notes no changes in vaginal discharge. She noted yesterday she was fine. She noted symptoms started this am with her menstrual cycle. Notes worse FELICIANO during menstrual cycle. She notes mother has same symptoms. No provider so far for these problems. She has migraines monthly to q 2 months. She has not had any toradol while in ED. She has had emesis regularly since 729. She has never had anything like this before. Has never felt this way before. She has smoked marijuana daily. We discussed the marijuana, discussed hyeremesis. I discussed imitrex injectable, discussed injectable toradol as well. We will provide some carafate while here. +photophobia chronic menstrual migraine, now not tolerating po intake. I asked her about the drug use and she noted she only did 3 lines of cocaine. Reported headache, no fever, no vision changes but + photophobia, no loss of taste/smell, No URI symptoms, no new URI symptoms, no cough/congestion/wheezing/SOA, No CP, no reported fatigue, + abd pain RUQ and Epigastric, + N/V without Diarrhea, non bloody emesis, no constipation, no changes in urination/stooling, no new MSK pain, no recent injuries. she notes decreased po intake. Inability to tolerate liquids/solids. Overnight she had imitrex subcut 6mg x 1, she had toradol, zofran/phenergan IV. Labs this am showed WBC increased to 13.74 normal hgb 12.4, normal plt 287. CMP WNL sodium 135.8, K+ 3.45, BUN 6.4, Cr 0.45, glucose 94.8. AST mildly elevated at 40.6. Reviewed nursing notes overnight. She was resting w/o issues from [id number]. She got zofran at that time. IV fluids running at 90ml/hour based on maintenance calcs. She was up ad rosa elena for DVT prophy. She continued to rest comfortably without pain and without emesis from [id number] on 01/14/20. Voids x1 0500 and then normal unto [id number]. I saw her this am at 07:15 and rounded on patient prior to her US. Was NPO for RUQ US. She had that procedure and did well, negative scan. Vitals this am BP 109/66, Pulse 80, RR 16, o2 98% and temp 99.1. We spent 30 minutes together rounding this am and planned to d/c early am. However, she had another round of N/V and dry heaving. Phenergan/zofran given, she was monitored another 4 hours and by 12:00 pm she was feeling better again. WE discussed r/b/a to going home, discussed gastritis, gastroenteritis, PUD, biliary process. Discussed her menstruation. Discussed her drug use and discussed her readiness for d/c. She wants to go home. She was medically optimized, tolerating liquids, vitals stable. Labs CBC showed likely demargin atiion with the WBC. Plan to d/c [id number]. Day of D/C Physical Examiination. Constitutional: Appearance-No acute distress, resting in bed prone. Rolled over. Sat up. no issues today. Consistent with stated age. Orientation- Oriented x 3, alert Gait- normal. Build and Nutrition-[normal] General- Patient is pleasant and cooperative with the interview and exam. Integumentary: General-No rashes, ENMT: Nares: [place], moist. Turbinates non boggy. Lips- normal color, moist without cracks/lesions Oral Cavity/Palate- hard/soft palate intact without lesions, oral mucosa pink and moist. Tongue normal midline. Oropharynx- no pharyngeal erythema, Uvula midline. No post nasal drip. No exudate. Salivary glands- Non tender to palpation CHEST/LUNG: Inspection- symmetric chest wall no pectus deformity. Normal effort, no distress, no use of accessory muscles. Palpation- nontender sternum, ribline. No abnormal pulsations. Auscultation- Breath sounds normal throughout all lung marsh. Normal tracheal sounds, Normal bronchial sounds overlying sternum, Bronchovessicular sounds normal between scapulae posteriorly, Normal vessicular breath sounds heard throughout periphery. Lungs are clear today. Adventitious sounds- No wheezes, rales, rhonchi. CARDIOVASCULAR: Carotid artery- normal, no bruits or abnormal pulsations. Jugular vein- no pulsations. Palpation/Percussion- Normal PMI, no palpable thrill Auscultation- Regular rate and rhythm. No murmur noted in sitting, supine positions. Extremities- no digital clubbing, cyanosis, edema, increased warmth. ABDOMEN: Inspection- normal and no visible pulsations. Normal contour. Auscultation- Bowel sounds normal, no abdominal bruits. Palpation/Percussion- soft, tender RUQ and Epigastric Region. Lovelace +. Mcburney negative, rovsing negative, obturator negative. no rebound tenderness, no rigidity (guarding), no jar tenderness, no masses. Liver-no hepatomegaly, Spleen no splenomegaly, Hernias- none. Rectal not examined. Peripheral Vascular: Upper extremity Left- Normal temperature with pink nailbeds and no ulcerations. Upper extremity Right- Normal temperature with pink nailbeds and no ulcerations. Lower extremity- Normal temperature with pink nailbeds and no ulcerations. DP pulses 2+ bilaterally. Pedal hair intact. Normal capillary refill. Edema- No edema. Cap refills normal. Musculoskeletal: Generalized-No generalized swelling or edema of extremities, no digital clubbing or cyanosis, neurovascularly intact all four extremities. Neurological: General- Moves all 4 extremities symmetrically. Symmetrical face and body posture. Cranial nerves- individually evaluated II-XII and intact. PERRLA, Normal EOMI, visual/special senses appear intact, Face is symmetrical and normal sensation/movement, normal tongue, normal strength/posture of neck musculature. Reflexes- intact with DTR 2+ patellar, Achilles, bicep, brachial, tricep. Ankle clonus normal with 2 beats. Strength- 5/5 bilateral UE and LE. Soft touch- intact bilateral UE and LE. Temperature sensation- intact bilateral UE and LE. Neuropsych: Oriented- Person, place, time. (AAOx3), Mood/affect- normal and congruent. Able to articulate well. Speech-Normal speech, normal rate, normal tone, normal use of language, volume and coherence. Thought content- normal with ability to perform basic computations and apply abstract thought/reason. Associations- intact, no SI/HI, no hallucinations, delusions, obsessions. Judgment/insight- Appropriate. Memory-Recall intact, remote and recent memory intact. Knowledge- Age appropriate fund of knowledge, concentration and attention span normal.
[2020-01-14 13:16] VITALS: BP 96/50; TEMP 98.5
== END 2020-01-14 13:25 | disposition home or self-care (01) ==
LOC: MEDSURG B 10:43 → ED 10:43 → MEDSURG B 16:31
PROVIDERS: ADMIT Family Medicine; ATTEND Family Medicine
DX: R63.0 Anorexia; K29.00 Acute gastritis without bleeding; N94.6 Dysmenorrhea, unspecified; R07.9 Chest pain, unspecified; J02.0 Streptococcal pharyngitis; R10.13 Epigastric pain; M54.9 Dorsalgia, unspecified; T40.7X1A Poisoning by cannabis (derivatives), accidental (unintentional), initial encounter; R53.1 Weakness; F14.90 Cocaine use, unspecified, uncomplicated; Z72.0 Tobacco use; F12.188 Cannabis abuse with other cannabis-induced disorder; R11.2 Nausea with vomiting, unspecified; R10.11 Right upper quadrant pain